=== PATIENT | female | born 2000 | race Caucasian/White ===

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

== ENCOUNTER 2018-07-25 07:31 | Emergency (ER) | END 2018-07-25 12:29 | disposition home or self-care (01) ==

== ENCOUNTER 2018-12-19 00:16 | Inpatient (IN) | payer BC ==
[~2018-12-19] VITALS: Ht 162.6 cm; Wt 59.0 kg
[~2018-12-19 00:16] MED LIST changes: +ACET325T33 PO; +ACET500C5 PO; +ALBU18HF INHALATION; -ALBU8.5H3 INH; +ALBU8.5H8 INH; +AZIT250T PO; +BENZ-6 PO; +CEPH-443 PO; +CYCL10TA7 PO; +D-ME473S2 PO; +GUAI118L22 PO; +MED4DP PO; +ONDA4TAB14 PO; +PRED20TA PO; +PROM5SYR2 PO
[2018-12-19] MEDS ORDERED: SOD CHLORIDE 0.9% 1,000 ML IV STA (00:33)
[2018-12-19] MEDS ORDERED: morphine 4 MG/ML VIAL IV STA (00:33)
[2018-12-19] MEDS ORDERED: ONDANSETRON 4 MG INJ IV STA (00:33)
[2018-12-19] MEDS ORDERED: POTASSIUM CHLORIDE (SR) 20 MEQ TAB PO STA ×2 (01:56→09:14)
[2018-12-19] MEDS ORDERED: POTASSIUM CHLORIDE 100 ML IVPB ONE (02:00)
--- NOTE | 2018-12-19 02:13 | ERD ---
ER Documentation Chief Complaint Chief Complaint vomiting/diarrhea/abd pain since ; had vacay from [place] HPI 18-year-old female previously healthy presenting with abdominal pain and associated vomiting and diarrhea for the past 4 days. She went to [place] with her family and multiple individuals there got sick like she did. She was taken to a nearby hospital where she received antibiotics and IV fluids. Today her family transferred her from the hospital by private vehicle and came here for evaluation. She states that she thinks she ate something bad because she started having multiple episodes of diarrhea that was nonbloody and vomiting that was nonbloody and nonbilious. Her pain was generalized in the abdomen, with no alleviating or exacerbating factors. She has been urinating normally. She endorses associated fevers and chills. ROS All systems reviewed and are negative except as per history of present illness. Medications Home Meds Active Scripts Ondansetron (Ondansetron Odt) 4 Mg Tab.rapdis, 4 MG PO Q6H PRN for NAUSEA AND/OR VOMITING, #30 TAB Prov:PARTH MCKEON PA-C 07/25/18 Ibuprofen* (Motrin*) 600 Mg Tab, 600 MG PO Q6H PRN for PAIN AND OR ELEVATED TEMP, #30 TAB Prov:PARTH MCKEON PA-C 07/25/18 Acetaminophen* (Tylenol*) 325 Mg Tablet, 2 TAB PO Q4 PRN for PAIN AND OR ELEVATED TEMP, #30 TAB Prov:PARTH MCKEON PA-C 07/25/18 Cyclobenzaprine Hcl* (Cyclobenzaprine Hcl*) 10 Mg Tablet, 10 MG PO TID, #15 TAB Prov:JUANITA PISANO NP 12/31/17 Acetaminophen* (Tylophen*) 500 Mg Capsule, 1 CAP PO Q6H PRN for PAIN AND OR ELEVATED TEMP, #20 CAP Prov:JUANITA PISANO NP 12/31/17 Dextromethorphan Hb-Promethazine Hcl* (Promethazine DM* Syrup) 473 Ml Syrup, 5 ML PO Q6 PRN for COUGH, #100 ML Prov:YANCY DAILEY PA-C 09/04/17 Albuterol Sulfate* (Proair HFA*) 8.5 Gm Hfa.aer.ad, 2 PUFF INH Q4, #1 INHALER Prov:YANCY DAILEY PA-C 09/04/17 Methylprednisolone* (Medrol* DOSE PACK) 4 Mg/Dose-Pack Tab.ds.pk, 4 MG PO . DIRECTED, #1 PACKET Prov:YANCY DAILEY PA-C 09/04/17 Azithromycin* (Zithromax*) 250 Mg Tablet, 250 MG PO .ZPACK DIRECTED, #6 TAB TAKE 500 MG (2 TABS) THE FIRST DAY THEN 250 MG (1 TAB) DAYS 2-5 Prov:GIOVANA KATHLEEN PA-C 09/03/17 Benzonatate* (Tessalon Perle*) 100 Mg Capsule, 100 MG PO Q8H PRN for COUGH, #20 CAP Prov:GIOVANA KATHLEEN PA-C 09/03/17 Azithromycin* (Zithromax*) 250 Mg Tablet, 250 MG PO .ZPACK DIRECTED, #6 TAB TAKE 500 MG (2 TABS) THE FIRST DAY THEN 250 MG (1 TAB) DAYS 2-5 Prov:GIOVANA KATHLEEN PA-C 09/03/17 Promethazine HCl/Codeine (Prometh-Codein 6.25-10 mg/5 ml) 5 Ml Syrup, 5 ML PO QHS, #4 OZ Prov:GIOVANA KATHLEEN PA-C 09/03/17 Prednisone* (Prednisone*) 20 Mg Tab, 40 MG PO DAILY for 4 Days, TAB Prov:GIOVANA KATHLEEN PA-C 09/03/17 Albuterol Sulfate* (Proair HFA*) 8.5 Gm Hfa.aer.ad, 2 PUFF INH Q4, #1 INHALER Prov:GIOVANA KATHLEEN PA-C 09/03/17 Guaifenesin/Codeine Phosphate (CHERATUSSIN AC SYRUP) 118 Ml Liquid, 5 ML PO Q4H PRN for COUGH, #118 ML Prov:DEBI HUNTLEY PA-C 05/02/17 Albuterol Sulfate* (Ventolin HFA*) 18 Gm Hfa.aer.ad, 2 PUFF INHALATION Q4H, #1 INHALER Prov:DEBI HUNTLEY PA-C 05/02/17 Azithromycin* (Zithromax*) 250 Mg Tablet, 250 MG PO .ZPACK DIRECTED, #6 TAB TAKE 500 MG (2 TABS) THE FIRST DAY THEN 250 MG (1 TAB) DAYS 2-5 Prov:DEBI HUNTLEY PA-C 05/02/17 Cephalexin* (Keflex*) 500 Mg Capsule, 500 MG PO QID for 10 Days, CAP Prov:DEBI HUNTLEY PA-C 05/02/17 Albuterol Sulfate* (Proair HFA*) 8.5 Gm Hfa.aer.ad, 2 PUFF INH Q6H PRN for WHEEZING AND SOB, #1 INHALER Prov:MERCEDES HERRERA MD 09/13/16 Ibuprofen* (Motrin*) 600 Mg Tab, 600 MG PO Q8 for PAIN AND/OR INFLAMMATION, #30 TAB Prov:MERCEDES HERRERA MD 09/13/16 Ibuprofen* (Motrin*) 600 Mg Tab, 600 MG PO Q6H PRN for PAIN AND OR ELEVATED TEMP, #30 TAB Prov:GIOVANA KATHLEEN PA-C 10/26/15 Reported Medications Guaifenesin/Dextromethorphan (Delsym Cough+Chest Cngst Dm Lq) 180 Ml Liquid, 3 ML PO Q6H, ML 09/13/16 Allergies Allergies: Coded Allergies: No Known Allergy (Unverified , 05/02/17) PMhx/Soc Medical and Surgical Hx: pt denies Surgical Hx History of Surgery: No Anesthesia Reaction: No Hx Neurological Disorder: No Hx Respiratory Disorders: Yes (asthma) Hx Cardiac Disorders: No Hx Psychiatric Problems: No Hx Miscellaneous Medical Probl: Yes (anemia) Hx Alcohol Use: No Hx Substance Use: No Hx Tobacco Use: No FmHx Family History: No diabetes Physical Exam Vitals Vital Signs Date Temp Pulse Resp B/P (MAP) Pulse Ox O2 O2 Flow FiO2 Time Delivery Rate 12/19/18 98.4 83 12 98/63 (75) 98 Room Air 02:21 12/19/18 98.2 94 20 106/60 97 00:20 (75) Physical Exam Const: No acute distress Head: Atraumatic Eyes: Normal Conjunctiva ENT: Dry mucous membranes. Normal External Ears, Nose and Mouth. Neck: Full range of motion. No meningismus. Resp: Clear to auscultation bilaterally Cardio: Regular rate and rhythm, no murmurs Abd: Soft, diffuse mild tenderness to palpation with no rebound or guarding, non distended. No McBurney's point tenderness. Negative Aranda sign. Normal bowel sounds Skin: No petechiae or rashes Back: No midline or flank tenderness Ext: No cyanosis, or edema Neur: Awake and alert Psych: Normal Mood and Affect Result Diagram: 12/19/18 0051 12/19/18 005 Results 24 hrs Laboratory Tests Test 12/19/18 00:51 12/19/18 00:52 12/19/18 02:13 White Blood Count 6.9 10^3/ul Red Blood Count 5.48 10^6/ul Hemoglobin 15.5 g/dl Hematocrit 43.2 % Mean Corpuscular Volume 78.8 fl Mean Corpuscular Hemoglobin 28.3 pg Mean Corpuscular 35.9 g/dl Hemoglobin Concent Red Cell Distribution Width 11.7 % Platelet Count 205 10^3/UL Mean Platelet Volume 10.3 fl Immature Granulocytes % 0.600 % Neutrophils % 79.9 % Lymphocytes % 8.0 % Monocytes % 11.0 % Eosinophils % 0.1 % Basophils % 0.4 % Nucleated Red Blood Cells % 0.0 /100WBC Immature Granulocytes # 0.040 10^3/ul Neutrophils # 5.5 10^3/ul Lymphocytes # 0.6 10^3/ul Monocytes # 0.8 10^3/ul Eosinophils # 0.0 10^3/ul Basophils # 0.0 10^3/ul Nucleated Red Blood Cells # 0.0 10^3/ul Sodium Level 133 mmol/L Potassium Level 2.8 mmol/L Chloride Level 98 mmol/L Carbon Dioxide Level 15 mmol/L Anion Gap 20 Blood Urea Nitrogen 36 mg/dl Creatinine 2.21 mg/dl Est Glomerular Filtrat 28 mL/min Rate mL/min Glucose Level 127 mg/dl Calcium Level 9.0 mg/dl Total Bilirubin 0.5 mg/dl Direct Bilirubin 0.00 mg/dl Indirect Bilirubin 0.5 mg/dl Aspartate Amino 32 IU/L Transf (AST/SGOT) Alanine 11 IU/L Aminotransferase (ALT/SGPT) Alkaline Phosphatase 62 IU/L Total Protein 8.6 g/dl Albumin 4.7 g/dl Globulin 3.90 g/dl Albumin/Globulin Ratio 1.20 Lipase 80 U/L Urine Color YELLOW Urine Clarity CLOUDY Urine pH 5.0 Urine Specific [place] 1.012 Urine Ketones NEGATIVE mg/dL Urine Nitrite NEGATIVE mg/dL Urine Bilirubin NEGATIVE mg/dL Urine Urobilinogen NEGATIVE mg/dL Urine Leukocyte Esterase NEGATIVE Leda/ul Urine Microscopic RBC 11 /HPF Urine Microscopic WBC 11 /HPF Urine Squamous Epithelial Cells MODERATE /HPF Urine Bacteria MANY /HPF Urine Mucus FEW /HPF Urine Hemoglobin 2+ mg/dL Urine Glucose NEGATIVE mg/dL Urine Total Protein NEGATIVE mg/dl Serum HCG, Qualitative NEGATIVE Current Medications Medications Dose Sig/Mone Start Time Status Last (Trade) Ordered Route PRN Stop Time Admin Dose Reason Admin Sodium 1,000 ml @ Q1H STAT 12/19/18 DC 12/19/18 Chloride 1,000 mls/hr IV 00:33 00:51 12/19/18 01:32 Morphine 4 mg ONCE STAT 12/19/18 DC 12/19/18 Sulfate IV 00:33 00:51 (morphine) 12/19/18 00:35 Ondansetron 4 mg ONCE STAT 12/19/18 DC 12/19/18 HCl (Zofran IV 00:33 00:51 Inj) 12/19/18 00:35 Potassium 40 meq ONCE STAT 12/19/18 DC 12/19/18 Chloride PO 01:56 02:38 (Klor-Con 20) 12/19/18 01:58 Potassium 100 ml @ ONCE ONCE 12/19/18 DC 12/19/18 Chloride 50 mls/hr IVPB 02:00 02:38 12/19/18 03:59 Ondansetron 4 mg BRIDGE ORDER 12/19/18 HCl (Zofran PRN IV 02:30 Inj) NAUSEA/VOMITI 12/20/18 02:29 NG 650 mg ER BRIDGE 12/19/18 Acetaminophen PRN PO 02:30 (Tylenol .MILD PAIN 12/20/18 02:29 Tab) 1-3 OR TEMP Famotidine 20 mg ONCE ONCE 12/19/18 DC 12/19/18 (Pepcid Iv) IV 02:30 02:30 12/19/18 02:31 Sodium 1,640 ml BOLUS OVER 2 12/19/18 DC 12/19/18 Chloride HOURS STAT 02:26 02:26 (NS) IV* 12/19/18 02:30 100 ml @ ONCE STAT 12/19/18 DC 12/19/18 Metronidazole 100 mls/hr IVPB 02:26 03:44 12/19/18 03:25 100 ml @ ONCE STAT 12/19/18 DC Levofloxacin/ 100 mls/hr IVPB 02:26 Dextrose 12/19/18 03:25 Magnesium 50 ml @ 25 ONCE ONCE 12/19/18 Sulfate mls/hr IVPB 02:30 12/19/18 04:29 Procedures/MDM EMERGENT LABS AND DIAGNOSTIC STUDIES: Lab Results above were reviewed and interpreted by me. CBC: no anemia or evidence of infection CMP: Evidence of acute renal failure with acidosis and hypokalemia. Blood sugar normal. No evidence of liver disease, or biliary obstruction Lipase: no evidence of pancreatitis 12-lead EKG was interpreted by Suzy Alcantar MD: Possible ectopic atrial rhythm at 67 bpm Normal axis Anterior inverted T waves. QTc mildly prolonged at 471 ms No arrhythmia or evidence of STEMI Radiology Results as interpreted by Radiology below were reviewed by Mirta Alcantar MD: [Radiology Results as read by Radiology] Initial Nursing notes reviewed. Previous Medical Records requested via the Electronic Health Record. EMERGENCY DEPARTMENT COURSE / MEDICAL DECISION MAKING: Patient is presenting with 4 days of vomiting and diarrhea. Vitals are unremarkable with no evidence of sepsis. However her labs were notable for acute renal failure with most likely starvation ketoacidosis and hypokalemia. Doubt acute surgical abdomen. Patient was treated with IV fluids, potassium supplementation, and IV antibiotics for possible travelers diarrhea. At this time, given her severe dehydration, I do not feel she is stable for discharge and will require admission for further workup and management. Accepting Care Team: Current data and ongoing care discussed. Time: Time of admission Primary Provider: Dr. Mtz Outstanding Data: Stool studies Departure Diagnosis: Primary Impression: Vomiting and diarrhea Additional Impressions: ROCHELLE (acute kidney injury) Hypokalemia Starvation ketoacidosis Severe dehydration Condition: Serious FERNANDO ALCANTAR MD Dec 19, 2018 02:13
[2018-12-19] MEDS ORDERED: metroNIDAZOLE 500 MG/NS (PMX) 100 ML IVPB STA (02:26)
[2018-12-19] MEDS ORDERED: SODIUM CHLORIDE 0.9% 1L BAG IV* STA (02:26)
[2018-12-19] MEDS ORDERED: LEVOFLOXACIN 500MG/D5W (PMX) 100 ML IVPB STA (02:26)
[2018-12-19] MEDS ORDERED: ONDANSETRON 4 MG INJ IV PRN ×2 (02:30→03:00)
[2018-12-19] MEDS ORDERED: ACETAMINOPHEN 325 MG TAB PO PRN ×2 (02:30→03:00)
[2018-12-19] MEDS ORDERED: MAGNESIUM SULFATE 2 GM/50 ML 50 ML IVPB ONE ×2 (02:30→10:00)
[2018-12-19] MEDS ORDERED: FAMOTIDINE 20 MG INJ IV ONE (02:30)
[2018-12-19] MEDS ORDERED: NACL 0.9% 3 ML SYG IV SCH (03:00)
[2018-12-19] MEDS ORDERED: BISACODYL (EC) 5 MG TAB PO PRN (03:00)
[2018-12-19] MEDS ORDERED: POTASSIUM CHLORIDE 40 MEQ in SOD CHLORIDE 0.9% 1,000 ML IV SCH (03:00)
[2018-12-19] MEDS ORDERED: DOCUSATE SODIUM 100 MG CAP PO PRN (03:00)
[2018-12-19] MEDS ORDERED: AZITHROMYCIN 500 MG TAB PO ONE (03:00)
[2018-12-19 04:00] VITALS: Ht 162.6 cm; Wt 59.0 kg
--- NOTE | 2018-12-19 04:42 | HP ---
Date/Time of Note Date/Time of Note DATE: 12/19/18 TIME: 04:31 Assessment/Plan VTE Prophylaxis SCD applied (from Nsg): Yes Pharmacological prophylaxis: NA/contraindicated Pharm contraindication: low risk/ambulating Lines/Catheters IV Catheter Type (from Nrsg): Saline Lock Assessment/Plan Hospital Course This is a 18-year-old female being admitted to the [facility] floor for: #1 severe gastroenteritis with dehydration: Secondary likely to traveler's diarrhea/food poisoning. Patient does have dry mucous membranes as well as metabolic acidosis and dehydration. She is afebrile here though she did report temperatures of 102 at home. Will obtain stool studies, lactic acid level. Aggressive IV fluid hydration with normal saline with supplemental potassium. She did receive Levaquin and Flagyl in the emergency department I will also give a dose of azithromycin 1000 mg p.o. x1. Continue Flagyl and consider further Levaquin or Cipro renally dosed. Zofran Reglan for nausea vomiting. #2 acute kidney injury: Most likely secondary to dehydration, diarrhea nausea vomiting, hemodynamics. Will hydrate the patient. Avoid nephrotoxic agents, renally dose medications. Will follow kidney function. #3 metabolic acidosis: Secondary to gastrointestinal losses. We will treat the underlying cause monitor closely #4 Severe hypokalemia: Secondary to gastrointestinal losses, poor p.o. intake. We will replete, and include and IV fluids. #5 hyponatremia: Again secondary to #1, patient currently receiving normal saline monitor. #6 DVT GI prophylaxis: SCDs, Protonix Further treatment strategy will be implemented as per the clinical course. Result Diagram: 12/19/18 00512/19/18 0051 Results 24hrs Laboratory Tests Test 12/19/18 00:51 12/19/18 00:52 12/19/18 02:13 White Blood Count 6.9 # Red Blood Count 5.48 H Hemoglobin 15.5 Hematocrit 43.2 Mean Corpuscular Volume 78.8 Mean Corpuscular Hemoglobin 28.3 L Mean Corpuscular Hemoglobin Concent 35.9 Red Cell Distribution Width 11.7 Platelet Count 205 Mean Platelet Volume 10.3 Immature Granulocytes % 0.600 H Neutrophils % 79.9 H Lymphocytes % 8.0 L Monocytes % 11.0 Eosinophils % 0.1 Basophils % 0.4 Nucleated Red Blood Cells % 0.0 Immature Granulocytes # 0.040 H Neutrophils # 5.5 Lymphocytes # 0.6 L Monocytes # 0.8 Eosinophils # 0.0 Basophils # 0.0 Nucleated Red Blood Cells # 0.0 Sodium Level 133 L Potassium Level 2.8 *L Chloride Level 98 Carbon Dioxide Level 15 L Anion Gap 20 H Blood Urea Nitrogen 36 H Creatinine 2.21 H Est Glomerular Filtrat Rate mL/min 28 L Glucose Level 127 Calcium Level 9.0 Total Bilirubin 0.5 Direct Bilirubin 0.00 Indirect Bilirubin 0.5 Aspartate Amino Transf (AST/SGOT) 32 Alanine Aminotransferase (ALT/SGPT) 11 L Alkaline Phosphatase 62 Total Protein 8.6 H Albumin 4.7 Globulin 3.90 H Albumin/Globulin Ratio 1.20 Lipase 80 Urine Color YELLOW Urine Clarity CLOUDY A Urine pH 5.0 Urine Specific [place] 1.012 Urine Ketones NEGATIVE Urine Nitrite NEGATIVE Urine Bilirubin NEGATIVE Urine Urobilinogen NEGATIVE Urine Leukocyte Esterase NEGATIVE Urine Microscopic RBC 11 H Urine Microscopic WBC 11 H Urine Squamous Epithelial Cells MODERATE Urine Bacteria MANY A Urine Mucus FEW A Urine Hemoglobin 2+ H Urine Glucose NEGATIVE Urine Total Protein NEGATIVE Serum HCG, Qualitative NEGATIVE HPI/ROS Admit Date/Time Admit Date/Time Dec 19, 2018 at 02:30 Hx of Present Illness Chief complaint: Nausea vomiting diarrhea since , fever This is a 18-year-old female who presented to the emergency department complaining of abdominal pain and nausea vomiting and diarrhea since .. She went to [place] with her family and group in approximately 10 out of the 13 people got sick there. She did get taken to the hospital in [facility] where she did receive antibiotics and fluids. Her family today brought her to [facility]. She states that she thinks she ate something bad because she started having multiple episodes of diarrhea that was nonbloody and vomiting that was nonbloody and nonbilious. Her pain was generalized in the abdomen, with no alleviating or exacerbating factors. She has been urinating normally. She endorses associated fevers and chills. She reports a higher temperature 102. She denies any joint pains denies any hematochezia or hematemesis. Denies any headaches or neck stiffness. Allergies: NKDA Medications: None ROS Const: As per HPI Eyes : No pain discharge or redness or change in visual acuity ENT: No pain, sore throat, congestion, congestion, dysphagia or discharge Respiratory: No shortness of breath, cough, sputum, wheezing, or pleuritic pain Cardiovascular: No chest pain, palpitation, PND, or edema GI : As per HPI Genitourinary: No dysuria, hematuria, flank pain , discharge or CVA tenderness Musculoskeletal: No joint pain, back pain, neck pain, restricted range of motion in neck or joints Skin: No rash, bruising or hives Neuro: No headache, dizziness, syncope, seizure, focal weakness Endocrine: No polyuria, polydipsia, temperature intolerance Psych: No hallucination, depression, anxiety or suicidal ideation PMH/Family/Social Past Medical History Medical History: no pertinent history Medications Current Medications Ondansetron HCl (Zofran Inj) 4 mg BRIDGE ORDER PRN IV NAUSEA/VOMITING; Start 12/19/18 at 02:30; Stop 12/20/18 at 02:29 Acetaminophen (Tylenol Tab) 650 mg ER BRIDGE PRN PO .MILD PAIN 1-3 OR TEMP; St art 12/19/18 at 02:30; Stop 12/20/18 at 02:29 Potassium Chloride 40 meq/ Sodium Chloride 1,000 ml @ 100 mls/hr Q10H IV ; Start 12/19/18 at 03:00; Stop 12/19/18 at 22:59 IV Flush (NS 3 ml) 3 ml PER PROTOCOL IV ; Start 12/19/18 at 03:00 Ondansetron HCl (Zofran Inj) 4 mg Q6H PRN IV NAUSEA/VOMITING; Start 12/19/18 at 03:00 Acetaminophen (Tylenol Tab) 650 mg Q6H PRN PO .PAIN 1-3 OR TEMP; Start 12/19/18 at 03:00 Docusate Sodium (Colace) 100 mg Q12H PRN PO .CONSTIPATION; Start 12/19/18 at 03:00 Bisacodyl (Dulcolax) 5 mg DAILY PRN PO .CONSTIPATION; Start 12/19/18 at 03:00 Metronidazole 100 ml @ 100 mls/hr Q6 IVPB ; Start 12/19/18 at 06:00 Coded Allergies: No Known Allergy (Unverified , 05/02/17) Past Surgical History Past Surgical Hx: no surgical history Family History Significant Family History: no pertinent family hx Social History Alcohol Use: none Smoking Status: Never smoker Drug Use: none Exam/Review of Systems Vital Signs Vitals Vital Signs Date Temp Pulse Resp B/P (MAP) Pulse Ox O2 O2 Flow FiO2 Time Delivery Rate 12/19/18 98.4 75 12 106/74 98 Room Air 03:45 (85) Exam Exam General: Patient is currently lying in bed, she does not appear to be in any acute distress, she does appear to be exhausted, lethargic HEENT: Atraumatic, normocephalic. The pupils are equal, round and reactive. Extraocular motor are intact, mucous membranes dry Neck: Supple with full range of motion. No rigidity or meningismus Chest: Nontender Lungs: Clear to auscultation bilaterally no crackles rales or wheezing Heart: Normal S1-S2, Regular rhythm and rate. No murmur, S3, or S4 Abdomen: Soft, generalized tenderness of the abdomen, nondistended, normal bowel sounds., No CVA tenderness palpation bilaterally Extremities: Normal to inspection, no edema no cyanosis Neurologic: Normal mental status, speech normal, cranial nerves II through XII are intact, motor and sensory are intact, no focal weakness MELANIE FINK Dec 19, 2018 04:42
[2018-12-19] MEDS ORDERED: metroNIDAZOLE 500 MG/NS (PMX) 100 ML IVPB SCH (06:00)
[2018-12-19] MEDS: metroNIDAZOLE 500 MG/NS (PMX) 100 ML IVPB SCH ×4 (08:26→23:23)
[2018-12-19 08:29] VITALS: BP 99/56; PULSE 82; RESP 18
[2018-12-19] MEDS ORDERED: CIPROFLOXACIN 200 MG/D5W IVPB 100 ML IVPB SCH (11:30)
[2018-12-19] MEDS: NS + KCL 20 MEQ 1,000 ML IV SCH ×2 (11:57→21:30)
--- NOTE | 2018-12-19 12:01 | PN ---
Date/Time of Note Date/Time of Note DATE: 12/19/18 TIME: 11:57 Assessment/Plan VTE Prophylaxis Risk score (from Ns)>0 risk: 1 SCD applied (from Ns): Yes Pharmacological prophylaxis: NA/contraindicated Pharm contraindication: low risk/ambulating Lines/Catheters IV C[facility]ter Type (from [facility]): Peripheral IV Assessment/Plan Hospital Course SUBJECTIVE: Continues to have nausea, vomiting, and diarrhea. OBJECTIVE: Physical Exam General: Adequately build 18 year-old female lying in bed in no apparent distress. HEENT: Normocephalic, atraumatic. Eyes: Anicteric sclerae, conjunctivae clear. ENT: Nasal septum midline, oral mucosa is dry. Neck supple, no JVD noticed. Respiratory: Bilaterally clear breath sounds. No use of accessory muscles of respiration. No adventitious breath sounds. Cardiovascular: S1, S2 heard. No murmurs or gallops. Abdomen: Soft, nontender, and nondistended. Bowel sounds positive in all 4 quadrants. Genitourinary: Deferred. Extremities: No cyanosis, no clubbing, no edema. Peripheral pulses palpable. Neurologic: Cranial nerves II through XII grossly intact. The patient is awake, alert, and oriented. Skin: Normal skin turgor. No skin rashes. Labs & Vitals per chart ASSESSMENT & PLAN 18-year-old female with no significant comorbidities who was recently visiting [place]. She started having abdominal pain with diarrhea, and vomiting. Majority of individuals who accompanied her in the trip also suffered from similar complaints and was hospitalized locally. The patient was brought to [facility] emergency room for further evaluation because patient's mom works here. The patient was noticed to have significant dehydration with underlying metabolic acidosis and hypokalemia along with acute kidney injury. 1. Traveler's diarrhea. -Stool studies pending. -Status post 1 dose of azithromycin. -Continue Flagyl. -Continue symptomatic management. -Hold antidiarrheals until infectious processes ruled out. 2. Acute kidney injury. -Probably secondary to underlying dehydration. -Continue IV fluids. -Use nephrotoxic drugs with caution. 3. Metabolic acidosis. -Most probably secondary to underlying acute kidney injury. -Correct underlying cause. 4. Nicotine use. -Cessation advised. -Refused nicotine patch. 5. Fluids, electrolytes, and nutrition. -Continue IV fluids. -Start clear liquids. 6. DVT prophylaxis -Bilateral SCDs. 7. Plan. -Continue IV hydration. -Continue antibiotics. -Correct electrolyte imbalances. -Await stool studies. The patient was seen in collaboration with Dr. Dawkins. Result Diagram: 12/19/1829 12/19/18528 Results 24hrs Laboratory Tests Test 12/19/18 00:51 12/19/18 00:52 12/19/18 02:13 12/19/18 05:29 White Blood Count 6.9 # 4.2 #L Red Blood Count 5.48 H 4.11 #L Hemoglobin 15.5 11.7 #L Hematocrit 43.2 32.7 #L Mean Corpuscular 78.8 79.6 Volume Mean Corpuscular 28.3 L 28.5 L Hemoglobin Mean Corpuscular 35.9 35.8 Hemoglobin Concent Red Cell 11.7 11.9 Distribution Width Platelet Count 205 157 # Mean Platelet Volume 10.3 10.2 Immature 0.600 H 0.700 H Granulocytes % Neutrophils % 79.9 H Lymphocytes % 8.0 L Monocytes % 11.0 Eosinophils % 0.1 Basophils % 0.4 Nucleated Red Blood 0.0 0.0 Cells % Immature 0.040 H 0.030 Granulocytes # Neutrophils # 5.5 Lymphocytes # 0.6 L Monocytes # 0.8 Eosinophils # 0.0 Basophils # 0.0 Nucleated Red Blood 0.0 Cells # Sodium Level 133 L 136 Potassium Level 2.8 *L 3.2 L Chloride Level 98 110 # Carbon Dioxide Level 15 L 15 L Anion Gap 20 H 11 # Blood Urea Nitrogen 36 H 26 H Creatinine 2.21 H 1.47 H Est Glomerular 28 L 45 L Filtrat Rate mL/min Glucose Level 127 110 Calcium Level 9.0 7.0 L Total Bilirubin 0.5 0.3 Direct Bilirubin 0.00 0.00 Indirect Bilirubin 0.5 0.3 Aspartate Amino 32 18 Transf (AST/SGOT) Alanine 11 L 16 Aminotransferase (AL T/SGPT) Alkaline Phosphatase 62 39 L Total Protein 8.6 H 5.6 #L Albumin 4.7 2.9 #L Globulin 3.90 H 2.70 Albumin/Globulin 1.20 1.07 Ratio Lipase 80 Urine Color YELLOW Urine Clarity CLOUDY A Urine pH 5.0 Urine Specific 1.012 [place] Urine Ketones NEGATIVE Urine Nitrite NEGATIVE Urine Bilirubin NEGATIVE Urine Urobilinogen NEGATIVE Urine Leukocyte NEGATIVE Esterase Urine Microscopic 11 H RBC Urine Microscopic 11 H WBC Urine Squamous MODERATE Epithelial Cells Urine Bacteria MANY A Urine Mucus FEW A Urine Hemoglobin 2+ H Urine Glucose NEGATIVE Urine Total Protein NEGATIVE Serum HCG, NEGATIVE Qualitative Segmented 55 Neutrophils % (Manual) Band Neutrophils % 22 H (Manual) Lymphocytes % 16 L (Manual) Monocytes % (Manual) 7 Neutrophils # 2.3 (Manual) Band Neutrophils # 0.9 H Lymphocytes (Manual) 0.6 L Monocytes # (Manual) 0.2 L Platelet Estimate NORMAL Giant Platelets 3 H Poikilocytosis 1+ Anisocytosis 1+ Microcytosis 1+ Lactic Acid Level 0.7 Magnesium Level 1.7 Creatine Kinase 131 Exam/Review of Systems Exam Vitals Vital Signs Date Temp Pulse Resp B/P (MAP) Pulse Ox O2 O2 Flow FiO2 Time Delivery Rate 12/19/18 98.2 82 18 99/56 (70) 98 Room Air 08:29 Results Results 24hrs Laboratory Tests Test 12/19/18 00:51 12/19/18 00:52 12/19/18 02:13 12/19/18 05:29 White Blood Count 6.9 # 4.2 #L Red Blood Count 5.48 H 4.11 #L Hemoglobin 15.5 11.7 #L Hematocrit 43.2 32.7 #L Mean Corpuscular 78.8 79.6 Volume Mean Corpuscular 28.3 L 28.5 L Hemoglobin Mean Corpuscular 35.9 35.8 Hemoglobin Concent Red Cell 11.7 11.9 Distribution Width Platelet Count 205 157 # Mean Platelet Volume 10.3 10.2 Immature 0.600 H 0.700 H Granulocytes % Neutrophils % 79.9 H Lymphocytes % 8.0 L Monocytes % 11.0 Eosinophils % 0.1 Basophils % 0.4 Nucleated Red Blood 0.0 0.0 Cells % Immature 0.040 H 0.030 Granulocytes # Neutrophils # 5.5 Lymphocytes # 0.6 L Monocytes # 0.8 Eosinophils # 0.0 Basophils # 0.0 Nucleated Red Blood 0.0 Cells # Sodium Level 133 L 136 Potassium Level 2.8 *L 3.2 L Chloride Level 98 110 # Carbon Dioxide Level 15 L 15 L Anion Gap 20 H 11 # Blood Urea Nitrogen 36 H 26 H Creatinine 2.21 H 1.47 H Est Glomerular 28 L 45 L Filtrat Rate mL/min Glucose Level 127 110 Calcium Level 9.0 7.0 L Total Bilirubin 0.5 0.3 Direct Bilirubin 0.00 0.00 Indirect Bilirubin 0.5 0.3 Aspartate Amino 32 18 Transf (AST/SGOT) Alanine 11 L 16 Aminotransferase (AL T/SGPT) Alkaline Phosphatase 62 39 L Total Protein 8.6 H 5.6 #L Albumin 4.7 2.9 #L Globulin 3.90 H 2.70 Albumin/Globulin 1.20 1.07 Ratio Lipase 80 Urine Color YELLOW Urine Clarity CLOUDY A Urine pH 5.0 Urine Specific 1.012 [place] Urine Ketones NEGATIVE Urine Nitrite NEGATIVE Urine Bilirubin NEGATIVE Urine Urobilinogen NEGATIVE Urine Leukocyte NEGATIVE Esterase Urine Microscopic 11 H RBC Urine Microscopic 11 H WBC Urine Squamous MODERATE Epithelial Cells Urine Bacteria MANY A Urine Mucus FEW A Urine Hemoglobin 2+ H Urine Glucose NEGATIVE Urine Total Protein NEGATIVE Serum HCG, NEGATIVE Qualitative Segmented 55 Neutrophils % (Manual) Band Neutrophils % 22 H (Manual) Lymphocytes % 16 L (Manual) Monocytes % (Manual) 7 Neutrophils # 2.3 (Manual) Band Neutrophils # 0.9 H Lymphocytes (Manual) 0.6 L Monocytes # (Manual) 0.2 L Platelet Estimate NORMAL Giant Platelets 3 H Poikilocytosis 1+ Anisocytosis 1+ Microcytosis 1+ Lactic Acid Level 0.7 Magnesium Level 1.7 Creatine Kinase 131 Medications Medication Current Medications Ondansetron HCl (Zofran Inj) 4 mg BRIDGE ORDER PRN IV NAUSEA/VOMITING Last administered on 12/19/18at 11:08; Admin Dose 4 MG; Start 12/19/18 at 02:30; Stop 12/20/18 at 02:29 Acetaminophen (Tylenol Tab) 650 mg ER BRIDGE PRN PO .MILD PAIN 1-3 OR TEMP; Start 12/19/18 at 02:30; Stop 12/20/18 at 02:29 Potassium Chloride 40 meq/ Sodium Chloride 1,000 ml @ 100 mls/hr Q10H IV Last administered on 12/19/18at 05:55; Admin Dose 100 MLS/HR; Start 12/19/18 at 03:00; Stop 12/19/18 at 22:59 IV Flush (NS 3 ml) 3 ml PER PROTOCOL IV ; Start 12/19/18 at 03:00 Ondansetron HCl (Zofran Inj) 4 mg Q6H PRN IV NAUSEA/VOMITING; Start 12/19/18 at 03:00 Acetaminophen (Tylenol Tab) 650 mg Q6H PRN PO .PAIN 1-3 OR TEMP; Start 12/19/18 at 03:00 Docusate Sodium (Colace) 100 mg Q12H PRN PO .CONSTIPATION; Start 12/19/18 at 03:00 Bisacodyl (Dulcolax) 5 mg DAILY PRN PO .CONSTIPATION; Start 12/19/18 at 03:00 Metronidazole 100 ml @ 100 mls/hr Q6 IVPB Last administered on 12/19/18at 08:26; Admin Dose 100 MLS/HR; Start 12/19/18 at 08:00 Magnesium Sulfate 50 ml @ 25 mls/hr ONCE ONCE IVPB Last administered on 12/19/18at 11:02; Admin Dose 25 MLS/HR; Start 12/19/18 at 10:00; Stop 12/19/18 at 11:59 Ciprofloxacin/ Dextrose 100 ml @ 100 mls/hr Q24H IVPB ; Start 12/19/18 at 11:30 Potassium Chloride/Sodium Chloride 1,000 ml @ 100 mls/hr Q10H IV ; Start 12/19/18 at 11:30 SISI YOUSIF NP Dec 19, 2018 12:01
[2018-12-19 15:01] VITALS: BP 95/51; PULSE 73; RESP 18
[2018-12-19 18:55] VITALS: BP 111/62; PULSE 93; RESP 18
[2018-12-20] MEDS: NS + KCL 20 MEQ 1,000 ML IV SCH ×2 (01:21→14:13)
[2018-12-20 01:24] VITALS: BP 101/62; PULSE 94; RESP 16
[2018-12-20] MEDS ORDERED: SOD CHLORIDE 0.9% 500 ML IV ONE (01:30)
[2018-12-20] MEDS: CIPROFLOXACIN 400MG/D5W 200 ML IVPB SCH ×2 (02:32→18:00)
[2018-12-20] MEDS: metroNIDAZOLE 500 MG/NS (PMX) 100 ML IVPB SCH ×3 (05:21→22:00)
[2018-12-20] MEDS ORDERED: POTASSIUM CHLORIDE (SR) 20 MEQ TAB PO STA (07:18)
[2018-12-20 08:03] VITALS: BP 105/55; PULSE 75; RESP 18
--- NOTE | 2018-12-20 08:04 | PN ---
Date/Time of Note Date/Time of Note DATE: 12/20/18 TIME: 08:03 Assessment/Plan VTE Prophylaxis Risk score (from Ns)>0 risk: 1 SCD applied (from Ns): Yes Pharmacological prophylaxis: NA/contraindicated Pharm contraindication: low risk/ambulating Lines/Catheters IV [facility]from [facility] Saline Lock Assessment/Plan Hospital Course SUBJECTIVE: Continues to have abdominal pain and diarrhea. OBJECTIVE: Physical Exam General: Adequately build 18 year-old female lying in bed in no apparent distress. HEENT: Normocephalic, atraumatic. Eyes: Anicteric sclerae, conjunctivae clear. ENT: Nasal septum midline, oral mucosa is dry. Neck supple, no JVD noticed. Respiratory: Bilaterally clear breath sounds. No use of accessory muscles of respiration. No adventitious breath sounds. Cardiovascular: S1, S2 heard. No murmurs or gallops. Abdomen: Soft and nondistended. Bowel sounds positive in all 4 quadrants. Genitourinary: Deferred. Extremities: No cyanosis, no clubbing, no edema. Peripheral pulses palpable. Neurologic: Cranial nerves II through XII grossly intact. The patient is awake, alert, and oriented. Skin: Normal skin turgor. No skin rashes. Labs & Vitals per chart ASSESSMENT & PLAN 18-year-old female with no significant comorbidities who was recently visiting [place]. She started having abdominal pain with diarrhea, and vomiting. Majority of individuals who accompanied her in the trip also suffered from similar complaints and was hospitalized locally. The patient was brought to [facility] emergency room for further evaluation because patient's mom works here. The patient was noticed to have significant dehydration with underlying metabolic acidosis and hypokalemia along with acute kidney injury. 1. Traveler's diarrhea. -Stool studies pending. -Status post 1 dose of azithromycin. -Continue Cipro+Flagyl. -Continue symptomatic management. -Hold antidiarrheals until infectious processes ruled out. 2. Acute kidney injury. -Probably secondary to underlying dehydration. -Continue IV fluids. -Use nephrotoxic drugs with caution. 3. Metabolic acidosis. -Most probably secondary to underlying acute kidney injury. -Correct underlying cause. 4. Nicotine use. -Cessation advised. -Refused nicotine patch. 5. Fluids, electrolytes, and nutrition. -Continue IV fluids. -Start clear liquids. 6. DVT prophylaxis -Bilateral SCDs. 7. Plan. -Continue IV hydration. -Continue antibiotics. -Correct electrolyte imbalances. -Await stool studies. -ID evaluation. The patient was seen in collaboration with Dr. Wilson. Result Diagram: 12/20/18 0455 12/20/18 0435 Results 24hrs Laboratory Tests Test 12/20/18 04:35 12/20/18 04:55 Sodium Level 135 Potassium Level 3.3 L Chloride Level 105 Carbon Dioxide Level 19 L Anion Gap 11 Blood Urea Nitrogen 12 # Creatinine 1.03 H Est Glomerular Filtrat Rate mL/min > 60 Glucose Level 95 Calcium Level 7.9 L Total Bilirubin 0.3 Direct Bilirubin 0.00 Indirect Bilirubin 0.3 Aspartate Amino Transf (AST/SGOT) 25 Alanine Aminotransferase (ALT/SGPT) 19 Alkaline Phosphatase 45 Total Protein 5.8 L Albumin 3.1 L Globulin 2.70 Albumin/Globulin Ratio 1.14 White Blood Count 4.0 L Red Blood Count 3.95 L Hemoglobin 11.3 L Hematocrit 32.3 L Mean Corpuscular Volume 81.8 Mean Corpuscular Hemoglobin 28.6 L Mean Corpuscular Hemoglobin Concent 35.0 Red Cell Distribution Width 11.9 Platelet Count 178 Mean Platelet Volume 9.7 Immature Granulocytes % 1.000 H Neutrophils % 68.2 Lymphocytes % 13.1 L Monocytes % 16.9 H Eosinophils % 0.3 Basophils % 0.5 Nucleated Red Blood Cells % 0.0 Immature Granulocytes # 0.040 H Neutrophils # 2.7 Lymphocytes # 0.5 L Monocytes # 0.7 Eosinophils # 0.0 Basophils # 0.0 Nucleated Red Blood Cells # 0.0 Hemoglobin A1c 5.1 Phosphorus Level 2.5 Magnesium Level 2.1 Exam/Review of Systems Exam Vitals Vital Signs Date Temp Pulse Resp B/P (MAP) Pulse Ox O2 O2 Flow FiO2 Time Delivery Rate 12/20/18 98.7 02:30 12/20/18 94 16 101/62 97 Room Air 01:24 (75) Intake and Output 12/19/18 12/19/18 12/20/18 1515:00 23:00 07:00 IntakeIntake Total 830 ml 700 ml 1365 ml OutputOutput Total 250 ml BalanceBalance 830 ml 700 ml 1115 ml Results Results 24hrs Laboratory Tests Test 12/20/18 04:35 12/20/18 04:55 Sodium Level 135 Potassium Level 3.3 L Chloride Level 105 Carbon Dioxide Level 19 L Anion Gap 11 Blood Urea Nitrogen 12 # Creatinine 1.03 H Est Glomerular Filtrat Rate mL/min > 60 Glucose Level 95 Calcium Level 7.9 L Total Bilirubin 0.3 Direct Bilirubin 0.00 Indirect Bilirubin 0.3 Aspartate Amino Transf (AST/SGOT) 25 Alanine Aminotransferase (ALT/SGPT) 19 Alkaline Phosphatase 45 Total Protein 5.8 L Albumin 3.1 L Globulin 2.70 Albumin/Globulin Ratio 1.14 White Blood Count 4.0 L Red Blood Count 3.95 L Hemoglobin 11.3 L Hematocrit 32.3 L Mean Corpuscular Volume 81.8 Mean Corpuscular Hemoglobin 28.6 L Mean Corpuscular Hemoglobin Concent 35.0 Red Cell Distribution Width 11.9 Platelet Count 178 Mean Platelet Volume 9.7 Immature Granulocytes % 1.000 H Neutrophils % 68.2 Lymphocytes % 13.1 L Monocytes % 16.9 H Eosinophils % 0.3 Basophils % 0.5 Nucleated Red Blood Cells % 0.0 Immature Granulocytes # 0.040 H Neutrophils # 2.7 Lymphocytes # 0.5 L Monocytes # 0.7 Eosinophils # 0.0 Basophils # 0.0 Nucleated Red Blood Cells # 0.0 Hemoglobin A1c 5.1 Phosphorus Level 2.5 Magnesium Level 2.1 Medications Medication Current Medications IV Flush (NS 3 ml) 3 ml PER PROTOCOL IV ; Start 12/19/18 at 03:00 Ondansetron HCl (Zofran Inj) 4 mg Q6H PRN IV NAUSEA/VOMITING; Start 12/19/18 at 03:00 Acetaminophen (Tylenol Tab) 650 mg Q6H PRN PO .PAIN 1-3 OR TEMP Last administered on 12/20/18at 01:35; Admin Dose 650 MG; Start 12/19/18 at 03:00 Docusate Sodium (Colace) 100 mg Q12H PRN PO .CONSTIPATION; Start 12/19/18 at 03:00 Bisacodyl (Dulcolax) 5 mg DAILY PRN PO .CONSTIPATION; Start 12/19/18 at 03:00 Metronidazole 100 ml @ 100 mls/hr Q6 IVPB Last administered on 12/20/18at 05:21; Admin Dose 100 MLS/HR; Start 12/19/18 at 08:00 Potassium Chloride/Sodium Chloride 1,000 ml @ 100 mls/hr Q10H IV Last administered on 12/20/18at 01:21; Admin Dose 100 MLS/HR; Start 12/19/18 at 11:30 Ciprofloxacin/ Dextrose 200 ml @ 200 mls/hr Q12@0600,1800 IVPB Last administered on 12/20/18at 02:32; Admin Dose 200 MLS/HR; Start 12/20/18 at 02:30 SISI YOUSIF NP Dec 20, 2018 08:04
--- NOTE | 2018-12-20 08:39 | CONS ---
Assessment/Plan Assessment/Plan Hospital Course (Demo Recall) 1) infectious diarrhea continue with IV cipro/flagyl GNR is growing in stool cx O&P and c.dif were ordered and are pending cipro should treat salmonella as well as e.coli flagyl will treat most parasites that cause acute infection (i.e giardia and ameoba) Consultation Date/Type/Reason Admit Date/Time Dec 19, 2018 at 02:30 Date of Consultation: Dec 20, 2018 Type of Consult ID Date/Time of Note DATE: 12/20/18 TIME: 08:28 Hx of Present Illness pt was traveling in [facility] she mostly ate hotel and restaurant food (no street vendors) she also had some food at the [employer] that was not in a restaurant she got sick within 5 hours of the trip to the [facility] she developed fever and generalized achiness she had some pain to R knee and wrists she has been vomiting many other people on the trip also got sick pt was hospitalized in [place] and got some unknown iv antibiotic no SOB, cough, dysuria she has abd pain no blood in stool or in vomitus Past Medical History Medical History: no pertinent history Home Meds Active Scripts Ondansetron (Ondansetron Odt) 4 Mg Tab.rapdis, 4 MG PO Q6H PRN for NAUSEA AND/OR VOMITING, #30 TAB Prov:PARTH MCKEON PA-C 07/25/18 Ibuprofen* (Motrin*) 600 Mg Tab, 600 MG PO Q6H PRN for PAIN AND OR ELEVATED TEMP, #30 TAB Prov:PARTH MCKEON PA-C 07/25/18 Acetaminophen* (Tylenol*) 325 Mg Tablet, 2 TAB PO Q4 PRN for PAIN AND OR ELEVATED TEMP, #30 TAB Prov:PARTH MCKEON PA-C 07/25/18 Cyclobenzaprine Hcl* (Cyclobenzaprine Hcl*) 10 Mg Tablet, 10 MG PO TID, #15 TAB Prov:JUANITA PISANO NP 12/31/17 Acetaminophen* (Tylophen*) 500 Mg Capsule, 1 CAP PO Q6H PRN for PAIN AND OR ELEVATED TEMP, #20 CAP Prov:JUANITA PISANO NP 12/31/17 Dextromethorphan Hb-Promethazine Hcl* (Promethazine DM* Syrup) 473 Ml Syrup, 5 ML PO Q6 PRN for COUGH, #100 ML Prov:YANCY DAILEY PA-C 09/04/17 Albuterol Sulfate* (Proair HFA*) 8.5 Gm Hfa.aer.ad, 2 PUFF INH Q4, #1 INHALER Prov:YANCY DAILEY PA-C 09/04/17 Methylprednisolone* (Medrol* DOSE PACK) 4 Mg/Dose-Pack Tab.ds.pk, 4 MG PO . DIRECTED, #1 PACKET Prov:YANCY DAILEY PA-C 09/04/17 Azithromycin* (Zithromax*) 250 Mg Tablet, 250 MG PO .ZPACK DIRECTED, #6 TAB TAKE 500 MG (2 TABS) THE FIRST DAY THEN 250 MG (1 TAB) DAYS 2-5 Prov:GIOVANA KATHLEEN PA-C 09/03/17 Benzonatate* (Tessalon Perle*) 100 Mg Capsule, 100 MG PO Q8H PRN for COUGH, #20 CAP Prov:GIOVANA KATHLEEN PA-C 09/03/17 Azithromycin* (Zithromax*) 250 Mg Tablet, 250 MG PO .ZPACK DIRECTED, #6 TAB TAKE 500 MG (2 TABS) THE FIRST DAY THEN 250 MG (1 TAB) DAYS 2-5 Prov:GIOVANA KATHLEEN PA-C 09/03/17 Promethazine HCl/Codeine (Prometh-Codein 6.25-10 mg/5 ml) 5 Ml Syrup, 5 ML PO QHS, #4 OZ Prov:GIOVANA KATHLEEN PA-C 09/03/17 Prednisone* (Prednisone*) 20 Mg Tab, 40 MG PO DAILY for 4 Days, TAB Prov:GIOVANA KATHLEEN PA-C 09/03/17 Albuterol Sulfate* (Proair HFA*) 8.5 Gm Hfa.aer.ad, 2 PUFF INH Q4, #1 INHALER Prov:GIOVANA KATHLEEN PA-C 09/03/17 Guaifenesin/Codeine Phosphate (CHERATUSSIN AC SYRUP) 118 Ml Liquid, 5 ML PO Q4H PRN for COUGH, #118 ML Prov:DEBI HUNTLEY PA-C 05/02/17 Albuterol Sulfate* (Ventolin HFA*) 18 Gm Hfa.aer.ad, 2 PUFF INHALATION Q4H, #1 INHALER Prov:DEBI HUNTLEY PA-C 05/02/17 Azithromycin* (Zithromax*) 250 Mg Tablet, 250 MG PO .ZPACK DIRECTED, #6 TAB TAKE 500 MG (2 TABS) THE FIRST DAY THEN 250 MG (1 TAB) DAYS 2-5 Prov:DEBI HUNTLEY PA-C 05/02/17 Cephalexin* (Keflex*) 500 Mg Capsule, 500 MG PO QID for 10 Days, CAP Prov:DEBI HUNTLEY PA-C 05/02/17 Albuterol Sulfate* (Proair HFA*) 8.5 Gm Hfa.aer.ad, 2 PUFF INH Q6H PRN for WHEEZING AND SOB, #1 INHALER Prov:MERCEDES HERRERA MD 09/13/16 Ibuprofen* (Motrin*) 600 Mg Tab, 600 MG PO Q8 for PAIN AND/OR INFLAMMATION, #30 TAB Prov:MERCEDES HERRERA MD 09/13/16 Ibuprofen* (Motrin*) 600 Mg Tab, 600 MG PO Q6H PRN for PAIN AND OR ELEVATED TEMP, #30 TAB Prov:GIOVANA KATHLEEN PA-C 10/26/15 Reported Medications Guaifenesin/Dextromethorphan (Delsym Cough+Chest Cngst Dm Lq) 180 Ml Liquid, 3 ML PO Q6H, ML 09/13/16 Medications Current Medications IV Flush (NS 3 ml) 3 ml PER PROTOCOL IV ; Start 12/19/18 at 03:00 Ondansetron HCl (Zofran Inj) 4 mg Q6H PRN IV NAUSEA/VOMITING; Start 12/19/18 at 03:00 Acetaminophen (Tylenol Tab) 650 mg Q6H PRN PO .PAIN 1-3 OR TEMP Last administered on 12/20/18at 01:35; Admin Dose 650 MG; Start 12/19/18 at 03:00 Docusate Sodium (Colace) 100 mg Q12H PRN PO .CONSTIPATION; Start 12/19/18 at 03:00 Bisacodyl (Dulcolax) 5 mg DAILY PRN PO .CONSTIPATION; Start 12/19/18 at 03:00 Potassium Chloride/Sodium Chloride 1,000 ml @ 100 mls/hr Q10H IV Last administered on 12/20/18at 01:21; Admin Dose 100 MLS/HR; Start 12/19/18 at 11:30 Ciprofloxacin/ Dextrose 200 ml @ 200 mls/hr Q12@0600,1800 IVPB Last administered on 12/20/18at 02:32; Admin Dose 200 MLS/HR; Start 12/20/18 at 02:30 Metronidazole 100 ml @ 100 mls/hr Q8 IVPB ; Start 12/20/18 at 14:00 Allergies: Coded Allergies: No Known Allergy (Unverified , 05/02/17) Past Surgical History Past Surgical Hx: no surgical history Social History Alcohol Use: none Smoking Status: Never smoker Drug Use: none Exam/Review of Systems Exam Vitals Vital Signs Date Temp Pulse Resp B/P (MAP) Pulse Ox O2 O2 Flow FiO2 Time Delivery Rate 12/20/18 98.7 02:30 12/20/18 94 16 101/62 97 Room Air 01:24 (75) Intake and Output 12/19/18 12/19/18 12/20/18 1515:00 23:00 07:00 IntakeIntake Total 830 ml 700 ml 1365 ml OutputOutput Total 250 ml BalanceBalance 830 ml 700 ml 1115 ml Constitutional: alert, oriented Eyes: nl sclera ENMT: mucosa pink and moist Respiratory: clear to auscultation Cardiovascular: regular rate and rhythm Gastrointestinal: soft, tender Extremities: other (no swelling of knees or wrists, no redness or increase in heat) Neurological: other (non focal) Results Result Diagram: 12/20/18 0455 12/20/18 0435 Results 24hrs Laboratory Tests Test 12/20/18 04:35 12/20/18 04:55 Sodium Level 135 Potassium Level 3.3 L Chloride Level 105 Carbon Dioxide Level 19 L Anion Gap 11 Blood Urea Nitrogen 12 # Creatinine 1.03 H Est Glomerular Filtrat Rate mL/min > 60 Glucose Level 95 Calcium Level 7.9 L Total Bilirubin 0.3 Direct Bilirubin 0.00 Indirect Bilirubin 0.3 Aspartate Amino Transf (AST/SGOT) 25 Alanine Aminotransferase (ALT/SGPT) 19 Alkaline Phosphatase 45 Total Protein 5.8 L Albumin 3.1 L Globulin 2.70 Albumin/Globulin Ratio 1.14 White Blood Count 4.0 L Red Blood Count 3.95 L Hemoglobin 11.3 L Hematocrit 32.3 L Mean Corpuscular Volume 81.8 Mean Corpuscular Hemoglobin 28.6 L Mean Corpuscular Hemoglobin Concent 35.0 Red Cell Distribution Width 11.9 Platelet Count 178 Mean Platelet Volume 9.7 Immature Granulocytes % 1.000 H Neutrophils % 68.2 Lymphocytes % 13.1 L Monocytes % 16.9 H Eosinophils % 0.3 Basophils % 0.5 Nucleated Red Blood Cells % 0.0 Immature Granulocytes # 0.040 H Neutrophils # 2.7 Lymphocytes # 0.5 L Monocytes # 0.7 Eosinophils # 0.0 Basophils # 0.0 Nucleated Red Blood Cells # 0.0 Hemoglobin A1c 5.1 Phosphorus Level 2.5 Magnesium Level 2.1 Medications Medication Current Medications IV Flush (NS 3 ml) 3 ml PER PROTOCOL IV ; Start 12/19/18 at 03:00 Ondansetron HCl (Zofran Inj) 4 mg Q6H PRN IV NAUSEA/VOMITING; Start 12/19/18 at 03:00 Acetaminophen (Tylenol Tab) 650 mg Q6H PRN PO .PAIN 1-3 OR TEMP Last administered on 12/20/18at 01:35; Admin Dose 650 MG; Start 12/19/18 at 03:00 Docusate Sodium (Colace) 100 mg Q12H PRN PO .CONSTIPATION; Start 12/19/18 at 03:00 Bisacodyl (Dulcolax) 5 mg DAILY PRN PO .CONSTIPATION; Start 12/19/18 at 03:00 Potassium Chloride/Sodium Chloride 1,000 ml @ 100 mls/hr Q10H IV Last ad ministered on 12/20/18at 01:21; Admin Dose 100 MLS/HR; Start 12/19/18 at 11:30 Ciprofloxacin/ Dextrose 200 ml @ 200 mls/hr Q12@0600,1800 IVPB Last administered on 12/20/18at 02:32; Admin Dose 200 MLS/HR; Start 12/20/18 at 02:30 Metronidazole 100 ml @ 100 mls/hr Q8 IVPB ; Start 12/20/18 at 14:00 DAISY HUTCHINSON MD Dec 20, 2018 08:39
[2018-12-20] MEDS ORDERED: CIPROFLOXACIN 400MG/D5W 200 ML IVPB SCH (09:00)
[2018-12-20 15:03] VITALS: BP 110/54; PULSE 70; RESP 18
[2018-12-20 19:18] VITALS: BP 92/54; PULSE 79; RESP 18
[2018-12-21 01:44] VITALS: BP 99/50; PULSE 86; RESP 16
[2018-12-21] MEDS: NS + KCL 20 MEQ 1,000 ML IV SCH (03:14)
[2018-12-21] MEDS: metroNIDAZOLE 500 MG/NS (PMX) 100 ML IVPB SCH (05:11)
[2018-12-21] MEDS: CIPROFLOXACIN 400MG/D5W 200 ML IVPB SCH ×2 (06:23→17:57)
--- NOTE | 2018-12-21 07:18 | CONS ---
Assessment/Plan Assessment/Plan Hospital Course (Demo Recall) 1) infectious diarrhea continue with IV cipro/flagyl GNR is growing in stool cx O&P and c.dif were ordered and are pending cipro should treat salmonella as well as e.coli flagyl will treat most parasites that cause acute infection (i.e giardia and ameoba) 12/21 - GNR in stool is not ID'd yet but chemical analysis done to date is c/w salmonella c.dif was neg and O&P was neg d/c flagyl, continue with just cipro (pt prefers IV form still) pt is only eating broths Consultation Date/Type/Reason Admit Date/Time Dec 19, 2018 at 02:30 Initial Consult Date 12/20/18 Type of Consult ID Date/Time of Note DATE: 12/21/18 TIME: 07:16 24 HR Interval Summary Free Text/Dictation pt had two BM's overnight and was not able to control them still has some abd pain no N, V breathing is ok knee and wrists are no longer painful Exam/Review of Systems Exam Vitals Vital Signs Date Temp Pulse Resp B/P (MAP) Pulse Ox O2 O2 Flow FiO2 Time Delivery Rate 12/21/18 98.5 86 16 99/50 (66) 100 Room Air 01:44 Intake and Output 12/20/18 12/20/18 12/21/18 1515:00 23:00 07:00 IntakeIntake Total 1755 ml 860 ml 1590 ml OutputOutput Total 600 ml BalanceBalance 1755 ml 860 ml 990 ml Constitutional: alert, oriented Eyes: nl sclera ENMT: mucosa pink and moist Respiratory: clear to auscultation Cardiovascular: regular rate and rhythm Gastrointestinal: soft, tender (tenderness to both LQ's) Results Result Diagram: 12/21/18 0425 12/21/18 0425 Results 24hrs Laboratory Tests Test 12/21/18 04:25 White Blood Count 7.4 # Red Blood Count 4.03 L Hemoglobin 11.5 L Hematocrit 32.9 L Mean Corpuscular Volume 81.6 Mean Corpuscular Hemoglobin 28.5 L Mean Corpuscular Hemoglobin Concent 35.0 Red Cell Distribution Width 12.0 Platelet Count 203 Mean Platelet Volume 9.5 Immature Granulocytes % 0.700 H Neutrophils % 73.4 Lymphocytes % 13.1 L Monocytes % 12.0 Eosinophils % 0.5 Basophils % 0.3 Nucleated Red Blood Cells % 0.0 Immature Granulocytes # 0.050 H Neutrophils # 5.4 Lymphocytes # 1.0 Monocytes # 0.9 Eosinophils # 0.0 Basophils # 0.0 Nucleated Red Blood Cells # 0.0 Sodium Level 138 Potassium Level 3.4 L Chloride Level 108 Carbon Dioxide Level 20 L Anion Gap 10 Blood Urea Nitrogen 8 Creatinine 0.97 Est Glomerular Filtrat Rate mL/min > 60 Glucose Level 93 Calcium Level 8.7 Phosphorus Level 2.7 Magnesium Level 1.7 Total Bilirubin 0.3 Direct Bilirubin 0.00 Indirect Bilirubin 0.3 Aspartate Amino Transf (AST/SGOT) 25 Alanine Aminotransferase (ALT/SGPT) 22 Alkaline Phosphatase 54 Total Protein 6.1 Albumin 3.2 L Globulin 2.90 Albumin/Globulin Ratio 1.10 Medications Medication Current Medications IV Flush (NS 3 ml) 3 ml PER PROTOCOL IV ; Start 12/19/18 at 03:00 Ondansetron HCl (Zofran Inj) 4 mg Q6H PRN IV NAUSEA/VOMITING Last administered on 12/20/18at 19:49; Admin Dose 4 MG; Start 12/19/18 at 03:00 Acetaminophen (Tylenol Tab) 650 mg Q6H PRN PO .PAIN 1-3 OR TEMP Last administered on 12/20/18at 01:35; Admin Dose 650 MG; Start 12/19/18 at 03:00 Docusate Sodium (Colace) 100 mg Q12H PRN PO .CONSTIPATION; Start 12/19/18 at 03:00 Bisacodyl (Dulcolax) 5 mg DAILY PRN PO .CONSTIPATION; Start 12/19/18 at 03:00 Potassium Chloride/Sodium Chloride 1,000 ml @ 100 mls/hr Q10H IV Last administered on 12/21/18at 03:14; Admin Dose 100 MLS/HR; Start 12/19/18 at 11:30 Ciprofloxacin/ Dextrose 200 ml @ 200 mls/hr Q12@0600,1800 IVPB Last administered on 12/21/18at 06:23; Admin Dose 200 MLS/HR; Start 12/20/18 at 02:30 Metronidazole 100 ml @ 100 mls/hr Q8 IVPB Last administered on 12/21/18at 05:11; Admin Dose 100 MLS/HR; Start 12/20/18 at 14:00 DAISY HUTCHINSON MD Dec 21, 2018 07:18
--- NOTE | 2018-12-21 13:51 | PN ---
Date/Time of Note Date/Time of Note DATE: 12/21/18 TIME: 13:49 Assessment/Plan VTE Prophylaxis Risk score (from Ns)>0 risk: 1 SCD applied (from Ns): Yes Pharmacological prophylaxis: heparin Lines/Catheters IV Catheter Type (from [facility]): Peripheral IV Assessment/Plan Hospital Course 18 yo female with acute diarrhea leading to volume depletion and ROCHELLE ROCHELLE: - Resolved Hypokalemia: - Replete as tolerated Diarrhea: - Antibiotics per ID I offered patient discharge but she is very hesistant to go home. Wants to stay in house. Mother is hospital employee at [employer], also wants her to stay. Can be discharged tomorrow Result Diagram: 12/21/18 0425 12/21/18 0425 Results 24hrs Laboratory Tests Test 12/21/18 04:25 White Blood Count 7.4 # Red Blood Count 4.03 L Hemoglobin 11.5 L Hematocrit 32.9 L Mean Corpuscular Volume 81.6 Mean Corpuscular Hemoglobin 28.5 L Mean Corpuscular Hemoglobin Concent 35.0 Red Cell Distribution Width 12.0 Platelet Count 203 Mean Platelet Volume 9.5 Immature Granulocytes % 0.700 H Neutrophils % 73.4 Lymphocytes % 13.1 L Monocytes % 12.0 Eosinophils % 0.5 Basophils % 0.3 Nucleated Red Blood Cells % 0.0 Immature Granulocytes # 0.050 H Neutrophils # 5.4 Lymphocytes # 1.0 Monocytes # 0.9 Eosinophils # 0.0 Basophils # 0.0 Nucleated Red Blood Cells # 0.0 Sodium Level 138 Potassium Level 3.4 L Chloride Level 108 Carbon Dioxide Level 20 L Anion Gap 10 Blood Urea Nitrogen 8 Creatinine 0.97 Est Glomerular Filtrat Rate mL/min > 60 Glucose Level 93 Calcium Level 8.7 Phosphorus Level 2.7 Magnesium Level 1.7 Total Bilirubin 0.3 Direct Bilirubin 0.00 Indirect Bilirubin 0.3 Aspartate Amino Transf (AST/SGOT) 25 Alanine Aminotransferase (ALT/SGPT) 22 Alkaline Phosphatase 54 Total Protein 6.1 Albumin 3.2 L Globulin 2.90 Albumin/Globulin Ratio 1.10 Subjective 24 Hr Interval Summary Free Text/Dictation Still having diarrhea, wants to advance diet Exam/Review of Systems Exam Vitals Vital Signs Date Temp Pulse Resp B/P (MAP) Pulse Ox O2 O2 Flow FiO2 Time Delivery Rate 12/21/18 98.5 86 16 99/50 (66) 100 Room Air 01:44 Intake and Output 12/20/18 12/20/18 12/21/18 1515:00 23:00 07:00 IntakeIntake Total 1755 ml 860 ml 1690 ml OutputOutput Total 600 ml BalanceBalance 1755 ml 860 ml 1090 ml Constitutional: alert, oriented, well developed Psych: no complaints, nl mood/affect Head: normocephalic, atraumatic Eyes: nl conjunctiva, EOMI, nl lids, nl sclera, PERRL ENMT: nl external ears & nose, nl lips & teeth, nl nasal mucosa & septum Neck: supple, non-tender Respiratory: clear to auscultation, normal air movement Cardiovascular: regular rate and rhythm, nl pulses Gastrointestinal: soft, nl liver, spleen, non-tender Musculoskeletal: nl extremities to inspection, nl gait and stance Extremities: normal pulses Neurological: [employer] II-XII intact, nl mental status, nl speech, nl strength Skin: nl turgor; No rash or lesions Lymph: nl lymph nodes Results Results 24hrs Laboratory Tests Test 12/21/18 04:25 White Blood Count 7.4 # Red Blood Count 4.03 L Hemoglobin 11.5 L Hematocrit 32.9 L Mean Corpuscular Volume 81.6 Mean Corpuscular Hemoglobin 28.5 L Mean Corpuscular Hemoglobin Concent 35.0 Red Cell Distribution Width 12.0 Platelet Count 203 Mean Platelet Volume 9.5 Immature Granulocytes % 0.700 H Neutrophils % 73.4 Lymphocytes % 13.1 L Monocytes % 12.0 Eosinophils % 0.5 Basophils % 0.3 Nucleated Red Blood Cells % 0.0 Immature Granulocytes # 0.050 H Neutrophils # 5.4 Lymphocytes # 1.0 Monocytes # 0.9 Eosinophils # 0.0 Basophils # 0.0 Nucleated Red Blood Cells # 0.0 Sodium Level 138 Potassium Level 3.4 L Chloride Level 108 Carbon Dioxide Level 20 L Anion Gap 10 Blood Urea Nitrogen 8 Creatinine 0.97 Est Glomerular Filtrat Rate mL/min > 60 Glucose Level 93 Calcium Level 8.7 Phosphorus Level 2.7 Magnesium Level 1.7 Total Bilirubin 0.3 Direct Bilirubin 0.00 Indirect Bilirubin 0.3 Aspartate Amino Transf (AST/SGOT) 25 Alanine Aminotransferase (ALT/SGPT) 22 Alkaline Phosphatase 54 Total Protein 6.1 Albumin 3.2 L Globulin 2.90 Albumin/Globulin Ratio 1.10 Medications Medication Current Medications IV Flush (NS 3 ml) 3 ml PER PROTOCOL IV ; Start 12/19/18 at 03:00 Ondansetron HCl (Zofran Inj) 4 mg Q6H PRN IV NAUSEA/VOMITING Last administered on 12/20/18at 19:49; Admin Dose 4 MG; Start 12/19/18 at 03:00 Acetaminophen (Tylenol Tab) 650 mg Q6H PRN PO .PAIN 1-3 OR TEMP Last administered on 12/20/18at 01:35; Admin Dose 650 MG; Start 12/19/18 at 03:00 Docusate Sodium (Colace) 100 mg Q12H PRN PO .CONSTIPATION; Start 12/19/18 at 03:00 Bisacodyl (Dulcolax) 5 mg DAILY PRN PO .CONSTIPATION; Start 12/19/18 at 03:00 Potassium Chloride/Sodium Chloride 1,000 ml @ 100 mls/hr Q10H IV Last administered on 12/21/18at 03:14; Admin Dose 100 MLS/HR; Start 12/19/18 at 11:30 Ciprofloxacin/ Dextrose 200 ml @ 200 mls/hr Q12@0600,1800 IVPB Last administered on 12/21/18at 06:23; Admin Dose 200 MLS/HR; Start 12/20/18 at 02:30 TERE RAGSDALE MD Dec 21, 2018 13:51
[2018-12-21 15:41] VITALS: BP 104/51; PULSE 77; RESP 18
[2018-12-21 19:51] VITALS: BP 114/54; PULSE 78; RESP 18
[2018-12-22 02:46] VITALS: BP 116/70; PULSE 80; RESP 18
[2018-12-22] MEDS: CIPROFLOXACIN 400MG/D5W 200 ML IVPB SCH (05:26)
--- NOTE | 2018-12-22 06:53 | CONS ---
Assessment/Plan Assessment/Plan Hospital Course (Demo Recall) 1) infectious diarrhea (salmonella) continue with IV cipro/flagyl GNR is growing in stool cx O&P and c.dif were ordered and are pending cipro should treat salmonella as well as e.coli flagyl will treat most parasites that cause acute infection (i.e giardia and ameoba) 12/21 - GNR in stool is not ID'd yet but chemical analysis done to date is c/w salmonella c.dif was neg and O&P was neg d/c flagyl, continue with just cipro (pt prefers IV form still) pt is only eating broths 12/22 - salmonella in stool cx, typing is done by dept of public health cipro is sensitive change cipro to oral 500mg BID and continue thru 12/28 Consultation Date/Type/Reason Admit Date/Time Dec 19, 2018 at 02:30 Initial Consult Date 12/20/18 Type of Consult ID Date/Time of Note DATE: 12/22/18 TIME: 06:52 24 HR Interval Summary Free Text/Dictation pt is having less diarrhea no V Exam/Review of Systems Exam Vitals Vital Signs Date Temp Pulse Resp B/P (MAP) Pulse Ox O2 O2 Flow FiO2 Time Delivery Rate 12/22/18 97.6 80 18 116/70 100 Room Air 02:46 (85) Intake and Output 12/21/18 12/21/18 12/22/18 1414:59 22:59 06:59 IntakeIntake Total 2200 ml 850 ml 800 ml OutputOutput Total 1 ml 201 ml 300 ml BalanceBalance 2199 ml 649 ml 500 ml Constitutional: alert, oriented Results Result Diagram: 12/22/18 0429 12/22/18 0430 Results 24hrs Laboratory Tests Test 12/22/18 04:29 12/22/18 04:30 White Blood Count 6.5 Red Blood Count 4.50 Hemoglobin 12.8 Hematocrit 36.7 L Mean Corpuscular Volume 81.6 Mean Corpuscular Hemoglobin 28.4 L Mean Corpuscular Hemoglobin Concent 34.9 Red Cell Distribution Width 12.1 Platelet Count 257 # Mean Platelet Volume 9.3 Immature Granulocytes % 1.400 H Neutrophils % Lymphocytes % Monocytes % Eosinophils % Basophils % Nucleated Red Blood Cells % 0.0 Immature Granulocytes # 0.090 H Neutrophils # Lymphocytes # Monocytes # Eosinophils # Basophils # Nucleated Red Blood Cells # Sodium Level 140 Potassium Level 3.4 L Chloride Level 106 Carbon Dioxide Level 22 Anion Gap 12 Blood Urea Nitrogen 9 Creatinine 0.90 Est Glomerular Filtrat Rate mL/min > 60 Glucose Level 83 Calcium Level 9.1 Total Bilirubin 0.3 Direct Bilirubin 0.00 Indirect Bilirubin 0.3 Aspartate Amino Transf (AST/SGOT) 46 Alanine Aminotransferase (ALT/SGPT) 29 Alkaline Phosphatase 65 Total Protein 6.6 Albumin 3.7 Globulin 2.90 Albumin/Globulin Ratio 1.27 Medications Medication Current Medications IV Flush (NS 3 ml) 3 ml PER PROTOCOL IV ; Start 12/19/18 at 03:00 Ondansetron HCl (Zofran Inj) 4 mg Q6H PRN IV NAUSEA/VOMITING Last administered on 12/20/18at 19:49; Admin Dose 4 MG; Start 12/19/18 at 03:00 Acetaminophen (Tylenol Tab) 650 mg Q6H PRN PO .PAIN 1-3 OR TEMP Last administered on 12/20/18at 01:35; Admin Dose 650 MG; Start 12/19/18 at 03:00 Docusate Sodium (Colace) 100 mg Q12H PRN PO .CONSTIPATION; Start 12/19/18 at 03:00 Bisacodyl (Dulcolax) 5 mg DAILY PRN PO .CONSTIPATION; Start 12/19/18 at 03:00 Ciprofloxacin (Cipro) 500 mg BID@,18 PO ; Start 12/22/18 at 18:00; Status UNV DAISY HUTCHINSON MD Dec 22, 2018 06:53
[2018-12-22 08:02] VITALS: BP 95/52; PULSE 78; RESP 18
--- NOTE | 2018-12-22 11:09 | PDOCDIS ---
Discharge Instructions CONDITION [id number] Patient Condition: [id number] Stable HOME CARE INSTRUCTIONS: [id number] Diet Instructions: [id number] Regular FOLLOW UP/APPOINTMENTS Follow-up Plan follow-up with primary care physician in1 week Drink plenty of fluids, Gatorade/Pedialyte light-containing solution. Wash your hands with soap and water, do not share your toiletries with other family members and if possible, do not share your bathroom as well. HARESH FLORES NP Dec 22, 2018 11:09
[2018-12-22] MEDS ORDERED: LACT1CAP57 PO (11:14)
[2018-12-22] MEDS ORDERED: CIPR500T4 PO (11:14)
[2018-12-22] MEDS ORDERED: [UNRECOGNIZED DRUG - OTHER] (11:14)
--- NOTE | 2018-12-22 11:28 | DS ---
Date/Time of Note Date/Time of Note DATE: 12/22/18 TIME: 11:26 Discharge Summary Admission/Discharge Info Admit Date/Time Dec 19, 2018 at 02:30 Discharge Date/Time Discharge Diagnosis 1. Infectious diarrhea, Salmonella 2. Electrolyte derangement secondary to diarrhea 3. Acute kidney injury secondary to hemodynamics. Resolved. Patient Condition: Stable Consults Dr. yepez, infectious disease Hospital Course 18 yo female who apparently traveled to [place], admitted with acute diarrhea leading to volume depletion and ROCHELLE. Patient was noted with infectious diarrhea with Salmonella. She was being followed by infectious disease team and was continued on appropriate antimicrobials. Diarrhea improved. She was hydrated well. Acute kidney injury also resolved. Blood light level was monitored closely repleted as indicated. At this time, patient is feeling better. She is tolerating diet and activities. Antibiotics be escalated to Cipro 500 mg twice daily through 12/28/2018. Patient is stable for outpatient follow-up. Approximately 60-minute was spent in coordinating the discharge on this patient. Patient was seen in collaboration with Dr. Wilson. Home Meds [employer] [School/Work Note] No Conflict Check Please excuse MS.Briana Castellano attending school or work from 12/19/2018 to 01/03/2019. Thanks Prov:HARESH FLORES NP 12/22/18 Lactobacillus Rhamnosus* (Culturelle*) 1 Each Cap.sprink, 1 CAP PO BID, #60 CAP Prov:HARESH FLORES NP 12/22/18 Ciprofloxacin Hcl* (Ciprofloxacin Hcl*) 500 Mg Tablet, 500 MG PO BID@06,18 for 7 Days, #14 TAB Prov:HARESH FLORES NP 12/22/18 Ondansetron (Ondansetron Odt) 4 Mg Tab.rapdis, 4 MG PO Q6H PRN for NAUSEA AND/OR VOMITING, #30 TAB Prov:PARTH MCKEON PA-C 07/25/18 Ibuprofen* (Motrin*) 600 Mg Tab, 600 MG PO Q6H PRN for PAIN AND OR ELEVATED TEMP, #30 TAB Prov:PARTH MCKEON PA-C 07/25/18 Acetaminophen* (Tylenol*) 325 Mg Tablet, 2 TAB PO Q4 PRN for PAIN AND OR ELEVATED TEMP, #30 TAB Prov:PARTH MCKEON PA-C 07/25/18 Cyclobenzaprine Hcl* (Cyclobenzaprine Hcl*) 10 Mg Tablet, 10 MG PO TID, #15 TAB Prov:JUANITA PISANO NP 12/31/17 Acetaminophen* (Tylophen*) 500 Mg Capsule, 1 CAP PO Q6H PRN for PAIN AND OR ELEVATED TEMP, #20 CAP Prov:JUANITA PISANO NP 12/31/17 Dextromethorphan Hb-Promethazine Hcl* (Promethazine DM* Syrup) 473 Ml Syrup, 5 ML PO Q6 PRN for COUGH, #100 ML Prov:YANCY DAILEY PA-C 09/04/17 Albuterol Sulfate* (Proair HFA*) 8.5 Gm Hfa.aer.ad, 2 PUFF INH Q4, #1 INHALER Prov:YANCY DAILEY PA-C 09/04/17 Methylprednisolone* (Medrol* DOSE PACK) 4 Mg/Dose-Pack Tab.ds.pk, 4 MG PO . DIRECTED, #1 PACKET Prov:YANCY DAILEY PA-C 09/04/17 Azithromycin* (Zithromax*) 250 Mg Tablet, 250 MG PO .ZPACK DIRECTED, #6 TAB TAKE 500 MG (2 TABS) THE FIRST DAY THEN 250 MG (1 TAB) DAYS 2-5 Prov:GIOVANA KATHLEEN PA-C 09/03/17 Benzonatate* (Tessalon Perle*) 100 Mg Capsule, 100 MG PO Q8H PRN for COUGH, #20 CAP Prov:GIOVANA KATHLEEN PA-C 09/03/17 Azithromycin* (Zithromax*) 250 Mg Tablet, 250 MG PO .ZPACK DIRECTED, #6 TAB TAKE 500 MG (2 TABS) THE FIRST DAY THEN 250 MG (1 TAB) DAYS 2-5 Prov:GIOVANA KATHLEEN PA-C 09/03/17 Promethazine HCl/Codeine (Prometh-Codein 6.25-10 mg/5 ml) 5 Ml Syrup, 5 ML PO QHS, #4 OZ Prov:GIOVANA KATHLEEN PA-C 09/03/17 Prednisone* (Prednisone*) 20 Mg Tab, 40 MG PO DAILY for 4 Days, TAB Prov:GIOVANA KATHLEEN PA-C 09/03/17 Albuterol Sulfate* (Proair HFA*) 8.5 Gm Hfa.aer.ad, 2 PUFF INH Q4, #1 INHALER Prov:GIOVANA KATHLEEN PA-C 09/03/17 Guaifenesin/Codeine Phosphate (CHERATUSSIN AC SYRUP) 118 Ml Liquid, 5 ML PO Q4H PRN for COUGH, #118 ML Prov:DEBI HUNTLEY PA-C 05/02/17 Albuterol Sulfate* (Ventolin HFA*) 18 Gm Hfa.aer.ad, 2 PUFF INHALATION Q4H, #1 INHALER Prov:DEBI HUNTLEY PA-C 05/02/17 Azithromycin* (Zithromax*) 250 Mg Tablet, 250 MG PO .ZPACK DIRECTED, #6 TAB TAKE 500 MG (2 TABS) THE FIRST DAY THEN 250 MG (1 TAB) DAYS 2-5 Prov:DEBI HUNTLEY PA-C 05/02/17 Cephalexin* (Keflex*) 500 Mg Capsule, 500 MG PO QID for 10 Days, CAP Prov:DEBI HUNTLEY PA-C 05/02/17 Albuterol Sulfate* (Proair HFA*) 8.5 Gm Hfa.aer.ad, 2 PUFF INH Q6H PRN for W HEEZING AND SOB, #1 INHALER Prov:MERCEDES HERRERA MD 09/13/16 Ibuprofen* (Motrin*) 600 Mg Tab, 600 MG PO Q8 for PAIN AND/OR INFLAMMATION, #30 TAB Prov:MERCEDES HERRERA MD 09/13/16 Ibuprofen* (Motrin*) 600 Mg Tab, 600 MG PO Q6H PRN for PAIN AND OR ELEVATED TEMP, #30 TAB Prov:GIOVANA KATHLEEN PA-C 10/26/15 Reported Medications Guaifenesin/Dextromethorphan (Delsym Cough+Chest Cngst Dm Lq) 180 Ml Liquid, 3 ML PO Q6H, ML 09/13/16 Follow-up Plan follow-up with primary care physician in1 week Drink plenty of fluids, Gatorade/Pedialyte light-containing solution. Wash your hands with soap and water, do not share your toiletries with other family members and if possible, do not share your bathroom as well. Primary Care Provider Michael Strickland MD Pending Labs Laboratory Tests Test 12/22/18 04:29 12/22/18 04:30 12/22/18 10:55 White Blood Count 6.5 10^3/ul (4.8-10.8) Red Blood Count 4.50 10^6/ul (4.20-5.40) Hemoglobin 12.8 g/dl (12.0-16.0) Hematocrit 36.7 % (37.0-47.0) Mean Corpuscular 81.6 Volume fl (72.0-104.0) Mean Corpuscular 28.4 pg (29.0-33.0) Hemoglobin Mean Corpuscular 34.9 Hemoglobin Concent g/dl (32.0-37.0) Red Cell 12.1 % (11.5-14.5) Distribution Width Platelet Count 257 10^3/UL (140-415) Mean Platelet 9.3 fl (7.4-10.4) Volume Immature 1.400 Granulocytes % % (0.001-0.429) Neutrophils % % (30.0-74.0) Segmented 66 % (30-74) Neutrophils % (Manual) Band Neutrophils % 6 % (0-10) (Manual) Lymphocytes % % (18.0-55.0) Lymphocytes % 18 % (18-55) (Manual) Reactive 1 % (0-0) Lymphocytes % (Manual) Monocytes % % (0.0-13.0) Monocytes % 7 % (0-13) (Manual) Eosinophils % % (0.0-7.0) Eosinophils % 1 % (0-7) (Manual) Basophils % % (0.0-2.0) Metamyelocytes % 1 % (0-0) (manual) Nucleated Red Blood 0.0 Cells % /100WBC (0.0-0.0) Immature 0.090 Granulocytes # 10^3/ul (0.0-0.031) Neutrophils # 10^3/ul (1.6-7.5) Neutrophils # 4.3 (Manual) 10^3/ul (1.6-7.5) Band Neutrophils # 0.3 10^3/ul (0.0-0.6) Lymphocytes 1.1 (Manual) 10^3/ul (0.8-2.9) Lymphocytes # 10^3/ul (0.8-2.9) Reactive 0.0 Lymphocytes # 10^3/ul (0.0-0.0) Monocytes # 10^3/ul (0.3-0.9) Monocytes # 0.4 (Manual) 10^3/ul (0.3-0.9) Eosinophils # 10^3/ul (0.0-0.5) Basophils # 10^3/ul (0.0-0.1) Metamyelocytes # 0.0 10^3/ul (0.0-0.0) Nucleated Red Blood 10^3/ul (0.0-0.0) Cells # Platelet Estimate NORMAL Poikilocytosis 2+ (0-0) Anisocytosis 2+ (0-0) Microcytosis 2+ (0-0) Sodium Level 140 mmol/L (135-144) Potassium Level 3.4 mmol/L (3.5-5.1) Chloride Level 106 mmol/L (97-110) Carbon Dioxide 22 mmol/L (21-31) Level Anion Gap 12 (5-13) Blood Urea Nitrogen 9 mg/dl (7-20) Creatinine 0.90 mg/dl (0.44-1.00) Est Glomerular > 60 mL/min (>60) Filtrat Rate mL/min Glucose Level 83 mg/dl (70-220) Calcium Level 9.1 mg/dl (8.4-10.2) Total Bilirubin 0.3 mg/dl (0.2-1.3) Direct Bilirubin 0.00 mg/dl (0.00-0.20) Indirect Bilirubin 0.3 mg/dl (0-1.1) Aspartate Amino 46 IU/L (15-46) Transf (AST/SGOT) Alanine 29 IU/L (13-69) Aminotransferase (A LT/SGPT) Alkaline 65 IU/L (42-121) Phosphatase Total Protein 6.6 g/dl (6.1-8.1) Albumin 3.7 g/dl (3.3-4.9) Globulin 2.90 g/dl (1.3-3.2) Albumin/Globulin 1.27 Ratio Lab Scanned Report [facility] [id number] HARESH FLORES NP Dec 22, 2018 11:28
[2018-12-22] MEDS ORDERED: CIPROFLOXACIN 500 MG TAB PO SCH (18:00)
== END 2018-12-22 14:20 | disposition home or self-care (01) | DRG 372 ==
LOC: FTE 00:16 → PP2 02:30 → MS1 18:42
PROVIDERS: ADMIT Family Medicine; ATTEND Internal Medicine
DX: A02.0 Salmonella enteritis (principal); N17.9 Acute kidney failure, unspecified; E87.2 Acidosis; E87.1 Hypo-osmolality and hyponatremia; E86.0 Dehydration; E87.6 Hypokalemia; Z72.0 Tobacco use
CPT/HCPCS: 36415; 71045; 80053; 81001; 82306; 82550; 83036; 83605; 83690; 83735; 84100; 84703; 85025; 86674; 87045; 87075; 87177; 87205; 93005; 96374; 96375; J0744; J1956; J2270; J2405; J3475; J3480; J7030; J7040